=== PATIENT | female | born 1970 | race African-American/Black ===

== ENCOUNTER 2019-02-23 12:27 | Emergency (ER) | payer OTHER ==
[~2019-02-23 12:27] MED LIST: SERT-138 PO; VITA500055 PO; tumeric PO
[2019-02-23 12:31] VITALS: BP 136/93
[2019-02-23 13:55] LABS: BASO % 1.3 % (0.0-1.0); EOS # 0.1 10^3/uL (0.0-0.50); EOS % 1.7 % (0.0-3.0); HEMATOCRIT 36.3 % (36.0-47.0); HEMOGLOBIN 12.1 g/dl (12.0-15.5); LYMPH % 34.3 % (24.0-44.0); MEAN CORPUSCULAR HEMOGLOBIN 28.9 pg (27.0-33.0); MEAN CORPUSCULAR HGB CONC 33.3 g/dl (32.0-36.5); MEAN CORPUSCULAR VOLUME 86.8 fl (80.0-96.0); MONO # 0.2 10^3/uL (0.0-0.8); MONO % 8.1 % (0.0-5.0); NEUTROPHILS # 1.6 10^3/uL (1.8-7.7); NEUTROPHILS % 54.3 % (36.0-66.0); PLATELET COUNT, AUTOMATED 214 10^3/uL (150-450); RED BLOOD COUNT 4.18 10^6/uL (4.00-5.40)
[2019-02-23] MEDS ORDERED: ISOVUE-370 76% 100ML VIAL (Q9967) As Ordered ONE (14:05)
--- NOTE | 2019-02-23 14:43 | REP ---
CT of the head without contrast Indication: Head injury, neck pain. Comparison: None Technique: Axial CT of the head was performed without contrast. Findings: There is no visible soft tissue swelling or calvarial fracture. There is no evidence of acute intracranial hemorrhage or extra-axial fluid collection. Addison-white matter differentiation is maintained. There is no mass effect or midline shift. The basal cisterns are patent. There is no hydrocephalus. The visualized paranasal sinuses and mastoid air cells are clear. Impression: No acute intracranial abnormality. Electronically Signed by Radha Parker MD 02/23/2019 02:35 P
--- NOTE | 2019-02-23 14:47 | REP ---
CT of the cervical spine without contrast Indication: Head injury, neck pain. Comparison: None Technique: Axial CT of the cervical spine was performed without contrast. Bone reformatted images were provided in the axial, coronal and sagittal planes. Findings: There is no acute fracture or subluxation of the cervical spine. The craniocervical junction is intact. Vertebral body heights and intervertebral disc heights are maintained. The CT appearance of the spinal canal is within normal limits. The paraspinal soft tissues are within normal limits. There is no apical pneumothorax. 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 Impression: No acute fracture or subluxation of the cervical spine. Electronically Signed by Radha Parker MD 02/23/2019 02:39 P
--- NOTE | 2019-02-23 15:12 | REP ---
CT ABDOMEN AND PELVIS WITH IV CONTRAST: TECHNIQUE: Axial contrast enhanced images from the lung bases to the pubic symphysis using 100 mL Isovue 370 intravenous contrast material with multiplanar reformations. Visualized lung bases demonstrate minor dependent bibasilar fibroatelectatic change. There are bilateral breast implants incidentally noted. The liver, spleen, adrenals, pancreas and kidneys are unremarkable. There is no hydronephrosis. There is no abdominal aortic aneurysm. There is no adenopathy. There is no free air. No bowel wall thickening is seen. There is no evidence of appendicitis with a normal appendix visualized. There is trace free fluid in the pelvis likely physiologic in nature. The uterus is deviated to the right of midline. Urinary bladder is grossly unremarkable. IMPRESSION: Trace free fluid in the pelvis is likely physiologic. The study is otherwise negative. Electronically Signed by Wild Addison MD 02/24/2019 12:10 A
[2019-02-23] MEDS ORDERED: ACETAMINOPHEN 325 MG TAB PO ONE (15:15)
== END 2019-02-23 15:57 | disposition home or self-care (01) ==
LOC: M ED 12:27
DX: S16.1XXA Strain of muscle, fascia and tendon at neck level, initial encounter (principal); S30.1XXA Contusion of abdominal wall, initial encounter; S09.90XA Unspecified injury of head, initial encounter; V43.52XA Car driver injured in collision with other type car in traffic accident, initial encounter; Y92.410 Unspecified street and highway as the place of occurrence of the external cause; F32.9 Major depressive disorder, single episode, unspecified; F17.200 Nicotine dependence, unspecified, uncomplicated; Z90.13 Acquired absence of bilateral breasts and nipples; Z98.890 Other specified postprocedural states
CPT/HCPCS: 36415; 70450; 72125; 74177; 80047; 85025; 99284; Q9967

== ENCOUNTER → 2021-03-26 | Outpatient (CLI) | payer OTHER ==
[~2021-03-26] MED LIST changes: +ISOVUE-300 61% 50ML VIAL As Ordered ONE; +PROHANCE 279.3MG/ML 5ML VIAL As Ordered ONE
--- NOTE | 2021-03-26 09:09 | REP ---
INDICATION: RT SHOULDER LABRUM LESION. COMPARISON: None TECHNIQUE: The procedure was performed by Fatemeh Aly [facility], under the direct supervision of Dr. Lindsay. The benefits and risks of the procedure were explained to the patient, and an informed consent was obtained. Directly prior to the start of the procedure, a formal time-out was completed in the procedure room. The right glenohumeral joint space was localized using fluoroscopic guidance. The skin was prepped and draped in a sterile fashion. Approximately 5 mL of 1% Lidocaine 10 mg/ml was used as a local anesthetic. Using fluoroscopic guidance, a #22 gauge spinal needle was inserted and advanced into the right glenohumeral joint space. Approximately 1 mL of Isovue 300 was injected to verify placement. Twelve mL of a solution containing 20 mL of sterile saline and 0.15 mL of ProHance was injected into the joint space. The needle was removed and the patient was taken to MRI for post procedural imaging. FINDINGS: The patient tolerated the procedure well and there were no immediate complications. IMPRESSION: Fluoroscopically guided right shoulder MRI arthrogram injection. 0.1 minutes of fluoroscopy time was utilized for this procedure. Some fluoroscopic images are performed with last image hold technology. These images require no additional radiation. <Electronically signed by Fatemeh Aly > 03/26/21 0826 <Electronically signed by John Lindsay > 03/26/21 0906
--- NOTE | 2021-03-26 09:43 | REP ---
INDICATION: RT SHOULDER LABRUM LESION. Chronic right shoulder pain. No known injury. Patient gives a history of prior breast carcinoma. COMPARISON: Comparison right shoulder MR study March 28, 2020. TECHNIQUE: The injection procedure is performed and dictated separately. Pre and post intra-articular gadolinium enhanced saline injected imaging is acquired. Imaging planes include axial, oblique coronal, oblique sagittal and ABER projection images. T1 and T2-weighted scans are included with and without fat saturation. FINDINGS: Pre-injection MR imaging demonstrates normal alignment of the glenohumeral acromioclavicular joints. Moderate AC joint hypertrophy is noted in there is marrow edema on either side of the AC joint. This is actually less pronounced than at the time of the March 28, 2020 study. No glenohumeral joint effusion is seen. There is an elongate cyst in the substance of the musculotendinous junction of the supraspinatus tendon. This is unchanged. There is advanced tendinitis tendinosis change in the distal supraspinatus tendon on oblique coronal T1 and T2 weighted scans. No focal full-thickness cuff lesion is seen on pre-injection imaging. The infraspinatus tendon is unremarkable. Biceps tendon is seen in the bony bicipital groove and appears intact. There is mild subscapularis tendinosis. Post injection imaging shows good filling and enhancement of the right glenohumeral articulation. There is no visible anterior labral tear. The posterior cartilaginous labrum appears intact. There is minimal fraying of the superior labrum. Oblique coronal T1 weighted scans with fat saturation post injection show no evidence of full-thickness is cuff lesion. The cystic area in the musculotendinous junction of the supraspinatus tendon does not show contrast enhancement post injection. ABER views show no labral tear. IMPRESSION: Extensive supraspinatus tendinitis tendinosis change. There is and associated cystic area in the musculotendinous junction of the supraspinatus muscle. Minimal fraying of the superior labrum. No other evidence of labral tear. AC joint osteoarthritis. <Electronically signed by John Lindsay > 03/26/21 [id number]
== END ==
LOC: M RADPRO 06:47
PROVIDERS: ATTEND Physician Assistant Surgical
DX: R93.7 Abnormal findings on diagnostic imaging of other parts of musculoskeletal system (principal); S43.431D Superior glenoid labrum lesion of right shoulder, subsequent encounter
CPT/HCPCS: 23350; 73223; 77002; A9576; Q9967

== ENCOUNTER → 2021-04-02 | Outpatient (CLI) | payer OTHER ==
--- NOTE | 2021-04-02 09:58 | REP ---
INDICATION: IMPINGEMENT SYNDROME, LT SHOULDER. COMPARISON: Comparison MR arthrography left shoulder May 19, 2019. TECHNIQUE: The injection procedure is performed and dictated separately. Pre and post intra-articular gadolinium enhanced saline injected imaging is acquired. Imaging planes include axial, oblique coronal, oblique sagittal and ABER projection images. T1 and T2-weighted scans are included with and without fat saturation. FINDINGS: Pre-injection imaging shows cortical and medullary bone signal intensity is normal. Normal alignment is seen at the AC and glenohumeral articulations. There is no evidence of pre-injection joint effusion. There is diffuse increased signal intensity and thinning or attenuation of the supraspinatus tendon on oblique coronal T1 weighted scans. Increased signal intensity is seen in the attenuated supraspinatus tendon on oblique coronal T2 weighted scans as well. The infraspinatus and subscapularis tendons appear intact. Biceps tendon is in the bony bicipital groove and is unremarkable. The posterior cartilaginous labrum has a frayed appearance on pre-injection imaging. Post injection imaging shows good filling and enhancement of the glenohumeral articulation. There is no evidence of anterior or posterior labral tear on post injection imaging. The superior labrum appears intact. Oblique coronal T1 weighted post injection imaging shows no evidence of full-thickness cuff tear. There is some enhancement along the synovial surface of the distal supraspinatus tendon. This is similar to the prior study. There is no evidence of intra-articular loose body. Periarticular soft tissues are unremarkable. IMPRESSION: Advanced tendinosis of the supraspinatus tendon with some thinning of the tendon and partial-thickness irregularity of the synovial surface. No full-thickness cuff tear is seen. Pre-injection imaging suggested frayed appearance to the posterior cartilaginous labrum. No labral tear was seen on post injection imaging. <Electronically signed by John Lindsay > 04/02/21 [id number]
--- NOTE | 2021-04-02 16:05 | REP ---
INDICATION: IMPINGEMENT SYNDROME, LT SHOULDER COMPARISON: None. TECHNIQUE: The procedure was performed under the direct supervision of Dr. Lindsay. The benefits and risks including but not limited to pain, infection, bleeding and anaphylaxis were explained to the patient and informed consent was obtained. The left glenohumeral joint space was localized using fluoroscopic guidance. The skin was prepped and draped in a sterile fashion. 1% lidocaine was used as a local anesthetic. Using fluoroscopic guidance a 22 gauge spinal needle was inserted and advanced into the joint. 0.5 ml of Isovue-300 was injected to verify placement. 11 ml of a solution containing 20 ml of sterile saline and 0.15 ml of ProHance was injected into the joint. The needle was removed and the patient was taken to MRI for postprocedural imaging. The patient tolerated the procedure well and there were no immediate complications. Less than 6 of fluoro time was utilized for this procedure. FINDINGS: None IMPRESSION: Fluoro guidance for left shoulder MRI arthrogram injection. <Electronically signed by Remy Garcia > 04/02/21 [id number] <Electronically signed by John Lindsay > 04/02/21 160
== END ==
LOC: M RADPRO 06:32
PROVIDERS: ATTEND Physician Assistant Surgical
DX: M75.42 Impingement syndrome of left shoulder (principal)
CPT/HCPCS: 23350; 73223; 77002; A9576; Q9967